=== PATIENT | male | born 1995 | race Caucasian/White ===

== ENCOUNTER 2023-07-13 03:21 | Emergency (ER) | payer OTHER ==
[~2023-07-13] VITALS: Ht 172.7 cm; Wt 68.0 kg
[2023-07-13] MEDS ORDERED: PANTOPRAZOLE 40 MG VIAL ONE (04:25)
[2023-07-13] MEDS ORDERED: PANTOPRAZOLE 40 MG VIAL IV ONE (04:30)
[2023-07-13] MEDS ORDERED: IV NS 0.9% 500 ML BAG IV ONE (04:30)
[2023-07-13 04:44] LABS: BASOPHILS % (AUTO) 0.2 % (0.0-2.0); EOSINOPHILS # (AUTO) 0.1 K/uL (0.0-0.7); EOSINOPHILS % (AUTO) 0.3 % (0.0-6.0); HEMATOCRIT 39 % (39-51); LYMPHOCYTES # (AUTO) 1.7 K/uL (0.8-4.8); LYMPHOCYTES % (AUTO) 10.3 % (20.0-44.0); MEAN CORPUSCULAR HEMOGLOBIN 30 PG (26.0-33.0); MEAN CORPUSCULAR HGB CONC 34 g/dl (31.0-36.0); MEAN CORPUSCULAR VOLUME 88 fL (80-96); MONOCYTES # (AUTO) 1.3 K/uL (0.1-1.30); MONOCYTES % (AUTO) 7.9 % (2.0-12.0); NEUTROPHILS # (AUTO) 13.7 K/uL (1.8-8.9); NEUTROPHILS % (AUTO) 81.3 % (43.0-81.0); PLATELET COUNT (AUTO) 370 K/uL (150-450); RED BLOOD CELL COUNT(AUTO) 4.39 MIL/uL (4.5-6.0); RED CELL DISTRIBUTION WIDTH 12.7 % (11.5-15.0); WHITE BLOOD COUNT (AUTO) 16.9 K/uL (4.3-11.0)
[2023-07-13 05:00] LABS: ALBUMIN 3.9 g/dL (3.4-5.0); BILIRUBIN,DIRECT 0.1 mg/dL (0.0-0.2); BILIRUBIN,TOTAL 0.3 mg/dL (0.2-1.0); CALCIUM, SERUM 9.3 mg/dL (8.5-10.1); POTASSIUM 3.8 mmol/L (3.5-5.1); TOTAL PROTEIN, SERUM 8.2 g/dL (6.4-8.2)
[2023-07-13 05:06] LABS: INR 1.05 (0.91-1.10); PARTIAL THROMBOPLASTIN TIME 33.3 SEC (24.3-34.3); PROTHROMBIN TIME 11.1 SECS (9.2-11.1)
[2023-07-13 05:42] LABS: APPEARANCE,URINE CLEAR (CLEAR); BILIRUBIN,URINE NEGATIVE (NEGATIVE); BLOOD, URINE NEGATIVE Ery/uL (NEGATIVE); COLOR,URINE YELLOW (YELLOW); KETONES,URINE NEGATIVE (NEGATIVE); LEUKOCYTE ESTERASE ,URINE NEGATIVE (NEGATIVE); NITRITE, URINE NEGATIVE (NEGATIVE); PH,URINE 6.5 (5.0-8.0); PROTEIN,URINE NEGATIVE (NEGATIVE); UGLUCOSE NEGATIVE (NEGATIVE); UROBILINOGEN,URINE 0.2 EU/dL (0.2)
[2023-07-13] MEDS ORDERED: AMOX-430 PO (09:14)
[2023-07-13 09:22] VITALS: BP 128/85; TEMP 98.3; O2SAT 97
== END 2023-07-13 09:23 | disposition home or self-care (01) ==
LOC: ER 03:27
DX: K92.2 Gastrointestinal hemorrhage, unspecified (principal); Z87.11 Personal history of peptic ulcer disease; Z87.19 Personal history of other diseases of the digestive system
CPT/HCPCS: 99285; 74176; 96374; 85025; 80048; 83690; 80076; 81003; 36415; 85730; 86850; J7040; C9113

== ENCOUNTER 2023-11-24 04:57 | Emergency (ER) | payer OTHER ==
[~2023-11-24] VITALS: Ht 172.7 cm; Wt 68.0 kg
[~2023-11-24 04:57] MED LIST: AMOX-430 PO
[2023-11-24] MEDS ORDERED: BENZ-13 PO (06:47)
[2023-11-24] MEDS ORDERED: ALBU18HF2 INH (06:47)
[2023-11-24] MEDS ORDERED: IBUPROFEN 600 MG TABLET ONE (07:21)
[2023-11-24] MEDS ORDERED: BENZONATATE 100 MG CAPSULE PO ONE (07:21)
[2023-11-24] MEDS: BENZONATATE 100 MG CAPSULE PO PRN (07:29)
[2023-11-24] MEDS: IBUPROFEN 600 MG TABLET PO ONE (07:29)
[2023-11-24 07:31] VITALS: BP 123/74; TEMP 211.8; O2SAT 97
== END 2023-11-24 07:32 | disposition home or self-care (01) ==
LOC: ER 05:19
DX: R05.9 Cough, unspecified (principal)
CPT/HCPCS: 71045-TC